=== PATIENT | male | born 1970 ===

== ENCOUNTER 2020-01-19 19:55 | Emergency (ER) | payer OTHER, SELFPAY ==
--- NOTE | ~2020-01-19 | XR_ITS ---
EXAMINATION: XR chest 2V DATE: 01/19/2020 20:32 INDICATION: Heart palpitations TECHNIQUE: PA and lateral views of the chest are obtained. COMPARISON: None available FINDINGS: There are minimal airspace opacities of the left lower lobe. There is no pleural effusion o r pneumothorax. The cardiomediastinal silhouette is normal. There is mild thoracic spondylosis. IMPRESSION: 1. Minimal airspace opacities of the left lower lobe, consistent with atelectasis versus pneumonia. Reviewed, dictated and finalized at location A. IMPRESSION: 1. Minimal airspace opacities of the left lower lobe, consistent with atelectas is versus pneumonia.
[2020-01-19 20:00] VITALS: BP 166/85; PULSE 79; RESP 15; TEMP 37; O2SAT 98
--- NOTE | 2020-01-19 20:05 | ECG_ITS ---
Measurements Intervals [place] Rate: 69 P: 27 ME: 168 QRS: -16 QRSD: 98 T: 50 QT: 399 QTc: 428 Interpretive Statements SINUS RHYTHM WITH SINUS ARRHYTHMIA EARLY PRECORDIAL R/S TRANSITION BORDERLINE ECG Electronically Signed On 01-20-2020 9:04:47 CDT by Trent Low D.O.
--- NOTE | 2020-01-19 20:23 | ED.ARRPALP ---
HPI - Arrhythmia/Palpitations General Chief Complaint: Arrhythmia/Palpitations Stated Complaint: non-purfusing PVCs Time Seen by Provider: 01/19/20 19:57 History of Present Illness HPI narrative: Patient is a 49-year-old male who presents the ER with palpitations. Patient reports history of PVCs and reports that throughout the day he has been having more frequent PVCs than typical. He has had 2 cups of tea which is less caffeine than he typically ingests. He has had some dark chocolate which he typically eats daily after dinner. No chest pain or chest pressure. When the drop beat occurs she does feel like it makes him catch his breath. When he drinks excessive caffeine he reports his iWatch will tell him he is gone into atrial fibrillation. He has not discussed this with his primary care physician. He does not take any rate control medications. Patient reports he has been under increased stress over the last 1 to 2 months related to COVID pandemic. He works for [employer] and is tasked with their regional response. No additional symptoms. Patient reports he worked out today with no exertional fatigue or chest pain. Related Data Allergies Allergy/AdvReac Type Severity Reaction Status Date / Time No Known Allergies Allergy Verified 01/19/20 20:05 Review of Systems Review of Systems: All systems reviewed & are unremarkable except as noted in HPI and below Constitutional: Constitutional: Denies chills, Denies fever(s) and Denies weakness ENT: Denies nasal congestion and Denies sore throat Cardiovascular: Cardiovascular: Denies chest pain and Denies rapid heart rate Comments: Palpitations Respiratory: Respiratory: Denies cough and Denies dyspnea PMFSH Past Medical History Medical History (Updated 01/19/20 @ 21:34 by Esa Harding MD) PVCs (premature ventricular contractions) Surgical History Surgical History (Updated 01/19/20 @ 20:25 by Esa Harding MD) H/O knee surgery Social History Social History (Updated 01/19/20 @ 20:25 by Esa Harding MD) Smoking status: Never smoker Gender identity (if verbalized by the patient): Male Exam Narrative: Exam Narrative: GENERAL: Well-appearing, well-nourished, and in no acute distress. HEAD: Normocephalic, atraumatic. CHEST: Clear to auscultation. No respiratory distress. HEART: Regular rate and rhythm with occasional dropped beat. No murmur heard. Normal peripheral pulses. EXTREMITIES: Normal range of motion. No edema. SKIN: Warm, dry, no rash. NEURO: Alert and oriented x3. PSYCH: Normal mood and affect. Course Course Emergency Course: Patient informed of results. Resting comfortably. Discharge home. Recommend follow-up with PCP for further evaluation. No signs or symptoms of pneumonia. X-ray felt to reflect atelectasis. Vital Signs Vital signs: Vital Signs Temperature 98.6 F 01/19/20 20:00 Pulse Rate 79 01/19/20 20:00 Respiratory Rate 15 01/19/20 20:00 Blood Pressure 166/85 H 01/19/20 20:00 Pulse Oximetry 98 01/19/20 20:00 Temperature 98.6 F 01/19/20 20:00 Pulse Rate 64 01/19/20 21:25 Respiratory Rate 14 01/19/20 21:25 Blood Pressure 136/73 01/19/20 21:25 Pulse Oximetry 97 01/19/20 21:25 MDM - Arrhythmia/Palpitations Lab Data Result diagrams: 01/19/20 20:28 01/19/20 20:28 Labs: Lab Results 01/19/20 01/19/20 Range/Units 20:28 20:28 WBC 9.9 (4.5-10.0) K/mm3 RBC 4.98 (4.6-6.20) M/mm3 Hgb 15.0 (14.0-18.0) g/dL Hct 43.8 (42.0-52.0) % MCV 88.0 (80-100) fl MCH 30.1 (26-34) pg MCHC 34.2 (32-36) g/dl RDW 12.5 (11.5-14.5) % Plt Count 209 (150-375) k/mm3 MPV 9.6 (7.4-10.4) fl Immature Gran % (Auto) 0.3 (0-0.5) % Neut % (Auto) 64.4 (45.5-73.1) % Lymph % (Auto) 25.8 (18.3-44.2) % [place] % (Auto) 8.1 (2.6-8.5) % Eos % (Auto) 1.0 (0-4.4) % Baso % (Auto) 0.4 (0.2-1.2) % Lymph # (Auto
[2020-01-19 20:33] LABS: Basophils Percent Auto 0.4 % (0.2-1.2); Eosinophils Absolute Auto 0.1 K/mm3 (0-0.3); Hematocrit 43.8 % (42.0-52.0); Immature Granulocyte Absolute 0.03 K/mm3 (0.00-0.031); Immature Granulocyte Percent A 0.3 % (0-0.5); Lymphocytes Absolute Auto 2.56 K/mm3 (0.9-3.2); Lymphocytes Percent Auto 25.8 % (18.3-44.2); Mean Corpuscular HGB Conc 34.2 g/dl (32-36); Mean Corpuscular Hemoglobin 30.1 pg (26-34); Mean Platelet Volume 9.6 fl (7.4-10.4); Monocytes Absolute Auto 0.8 K/mm3 (0.1-0.6); Monocytes Percent Auto 8.1 % (2.6-8.5); Neutrophils Absolute Auto 6.4 K/mm3 (1.3-6.7); Neutrophils Percent Auto 64.4 % (45.5-73.1); Platelet Count Result 209 k/mm3 (150-375); Red Blood Count 4.98 M/mm3 (4.6-6.20); Red Cell Distribution Width 12.5 % (11.5-14.5); White Blood Count 9.9 K/mm3 (4.5-10.0)
[2020-01-19 20:51] LABS: Blood Urea Nitrogen 21 mg/dL (9-20); Calcium 9.1 mg/dL (8.4-10.2); Carbon Dioxide 25 mmol/L (22-30); Chloride 104 mmol/L (98-107); Estimated Glomerular Filt Rate 59; Glucose 98 mg/dL (75-110); Magnesium 2.1 mg/dL (1.6-2.3); Potassium 3.9 mmol/L (3.4-5.0); Sodium 138 mmol/L (137-145)
[2020-01-19 21:03] LABS: Troponin I < 0.012 ng/mL (0.000-0.034)
[2020-01-19 21:25] VITALS: BP 136/73; PULSE 64; RESP 14; O2SAT 97
[2020-01-19 21:45] VITALS: BP 127/71; PULSE 65; RESP 12; O2SAT 96
== END 2020-01-19 21:46 | disposition home or self-care (01) ==
PROVIDERS: Emergency Provider Emergency Medicine
DX: R00.2 Palpitations (principal); R94.31 Abnormal electrocardiogram [ECG] [EKG]
CPT/HCPCS: 36415; 71046; 80048; 83735; 84484; 85025; 93005; 99283

== ENCOUNTER → 2020-09-10 06:31 | Outpatient (CLI) | payer OTHER, SELFPAY ==
--- NOTE | ~2020-09-10 | MR_ITS ---
EXAMINATION: MR knee LT wo con DATE: 09/10/2020 07:36 INDICATION: Left knee pain. TECHNIQUE: Magnetic resonance imaging (MRI) of the left knee was performed without intravenous contra st. Sequences included axial PD-weighted FS FSE, coronal PD-weighted FSE and PD-weighted FS FSE, sagi ttal PD-weighted FSE, and sagittal T2-weighted FS FSE. COMPARISON: None. FINDINGS: Medial compartment: There is a complex tear of posterior horn of medial meniscus. There is cartilage surface irregularity of tibial condyle. There is partial-thickness cartilage loss of femoral condyle, deep at the central and lateral articular surface. Osteophytes are noted. Lateral compartment: Lateral meniscus is normal. There is cartilage surface irregularity of tibial condyle and femoral con dyle. Osteophytes are noted. Patellofemoral compartment: There is deep partial thickness cartilage loss of patellar medial and lateral facets and median ridge . There is deep partial thickness cartilage loss of central and medial trochlea. Osteophytes are note d. Ligaments and tendons: Anterior cruciate ligament is normal. Posterior cruciate ligament is thin. There are changes of prior sprains of medial collateral ligament and fibular collateral ligament characterized by thickening an d increased signal intensity proximally. There is mild patellar tendinopathy. Fluid: There is a small knee joint effusion. There is mild prepatellar and superficial infrapatellar bursiti s. IMPRESSION: 1. Moderate chondrosis of medial and patellofemoral compartments and mild chondrosis of lateral dagmar rtment. 2. Tear of medial meniscus. 3. Small knee joint effusion. Reviewed, dictated and finalized at location A. COPER IMPRESSION: 1. Moderate chondrosis of medial and patellofemoral compartments and mild chond rosis of lateral compartment. 2. Tear of medial meniscus. 3. Small knee joint effusion.
== END ==
PROVIDERS: Visit Provider Internal Medicine
DX: M17.12 Unilateral primary osteoarthritis, left knee (principal); M25.462 Effusion, left knee; S83.242A Other tear of medial meniscus, current injury, left knee, initial encounter; X58.XXXA Exposure to other specified factors, initial encounter
CPT/HCPCS: 73721